=== PATIENT | female | born 1955 | race Two or more races ===

== ENCOUNTER 2016-06-18 12:36 | Inpatient (IN) | payer MEDICARE, MEDICAID ==
[~2016-06-18] VITALS: Ht 154.9 cm; Wt 72.6 kg
--- NOTE | 2016-06-18 12:36 | NUR ---
BIB FROM [facility], A/O X 4,AMBULATORY, NO MEDICAL COMPLAINTS AT THIS TIME, HERE FOR MEDICAL CLEARANCE PRIOR TO ADMISSION TO [facility].
--- NOTE | 2016-06-18 12:45 | NUR ---
SEEN BY DR LEACH, REFUSED LABORATORY TESTS REQUESTED, DR LEACH AWARE AND SAID THAT PATIENT CAN BE TX'D TO THE PSYCH UNIT FOR [facility]
--- NOTE | 2016-06-18 13:05 | NUR ---
REPORT GIVEN TO KIARA BROWN FOR [facility]
[2016-06-18] MEDS ORDERED: MAGNESIUM HYDROXIDE 30 ML UDC PO PRN (14:00)
[2016-06-18] MEDS ORDERED: LORAZEPAM 0.5 MG TABLET PO PRN (14:00)
[2016-06-18] MEDS ORDERED: MAG HYDROX/AL HYDROX/SIMETH 30 ML UDC PO PRN (14:00)
[2016-06-18 14:38] VITALS: BP 126/86
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
[2016-06-18 16:00] VITALS: BP 110/76
[2016-06-18] MEDS ORDERED: RISP1TAB7 PO (16:31)
[2016-06-18] MEDS ORDERED: DIPH50CA4 PO (16:31)
[2016-06-18 20:21] VITALS: BP 101/57
[2016-06-18] MEDS: risperiDONE-M 0.5 MG TAB.RAPDIS PO SCH (21:53)
--- NOTE | 2016-06-19 06:35 | NUR ---
GPS RN NOTES PT. SLEPT WELL DURING THE SHIFT , +2 NON PITTING EDEMA BOTH LOWER EXTREMITIES , NOTED DENIES ANY PAIN DISCOMFORT AT THIS TIME , ENDORSE TO NEXT SHIFT FOR CONTINUITY OF CARE .
[2016-06-19 07:37] LABS: ALBUMIN 3.5 g/dL (3.4-5.0); BILIRUBIN,TOTAL 0.4 mg/dL (0.2-1.0); CALCIUM, SERUM 8.6 mg/dL (8.5-10.1); CREATININE 0.7 mg/dL (0.6-1.3); POTASSIUM 4.2 mmol/L (3.5-5.1); TOTAL PROTEIN, SERUM 6.9 g/dL (6.4-8.2)
[2016-06-19 08:00] VITALS: BP 116/71
[2016-06-19] MEDS: ESCITALOPRAM OXALATE (10 MG) 10 MG TABLET PO SCH (08:38)
[2016-06-19] MEDS: risperiDONE-M 0.5 MG TAB.RAPDIS PO SCH ×2 (08:39→21:04)
--- NOTE | 2016-06-19 12:07 | NUR ---
Initial DC Plan: Patient reports that she is homeless and has [facility] [address] [place] [id number]; number unknown. She does not want to go back and wants to be sent to a homeless mcc in the [place], [place] area. Patient does not have any contact persons. SW will follow up with patient to discuss placement options. SW will work with patient and MD to form a safe and proper discharge. Patient will be mental health resources and medical resources prior to discharge.
[2016-06-19 16:00] VITALS: BP 111/69
[2016-06-19 20:00] VITALS: BP 123/73
[2016-06-19] MEDS: ZOLPIDEM TARTRATE 5 MG TABLET PO PRN (22:08)
[2016-06-20 08:00] VITALS: BP 141/91
[2016-06-20] MEDS: ESCITALOPRAM OXALATE (10 MG) 10 MG TABLET PO SCH (08:11)
[2016-06-20] MEDS: risperiDONE-M 0.5 MG TAB.RAPDIS PO SCH ×2 (08:11→20:59)
[2016-06-20] MEDS: ACETAMINOPHEN 325 MG TABLET PO PRN (08:11)
--- NOTE | 2016-06-20 09:58 | NUR ---
FAISAL sent a referral to [facility] [place], [place] [id number] in case patient agrees to be placed instead of going to a homeless correction. Will follow up Addendum: 06/25/16 at 1054 by JAIR MALONE Chilo Carmen at the facility, pt is not accepted due to not having enough skilled needs.
[2016-06-20 16:00] VITALS: BP 114/95
[2016-06-20 20:00] VITALS: BP 120/73
[2016-06-20] MEDS: ZOLPIDEM TARTRATE 5 MG TABLET PO PRN (20:59)
[2016-06-21 08:00] VITALS: BP 123/77
[2016-06-21] MEDS: risperiDONE-M 0.5 MG TAB.RAPDIS PO SCH ×2 (08:14→21:42)
[2016-06-21] MEDS: ACETAMINOPHEN 325 MG TABLET PO PRN (08:14)
[2016-06-21] MEDS: ESCITALOPRAM OXALATE (10 MG) 10 MG TABLET PO SCH (08:14)
[2016-06-21] MEDS ORDERED: CYCLOBENZAPRINE 10 MG TABLET PO PRN (09:30)
[2016-06-21 16:02] VITALS: BP 118/70
[2016-06-21 20:00] VITALS: BP 115/69
[2016-06-22 08:00] VITALS: BP 103/69
[2016-06-22] MEDS: risperiDONE-M 0.5 MG TAB.RAPDIS PO SCH ×2 (08:16→21:49)
[2016-06-22] MEDS: ESCITALOPRAM OXALATE (10 MG) 10 MG TABLET PO SCH (08:16)
[2016-06-22 16:00] VITALS: BP 112/69
[2016-06-22] MEDS: ACETAMINOPHEN 325 MG TABLET PO PRN (18:37)
[2016-06-22 20:04] VITALS: BP 118/59
[2016-06-23] MEDS: ZOLPIDEM TARTRATE 5 MG TABLET PO PRN ×2 (02:51→21:42)
--- NOTE | 2016-06-23 02:51 | NUR ---
GPS RN NOTE, PATIENT HAS A COMPLAINT OF NOT BEING ABLE TO SLEEP AND WOULD LIKE A SLEEPING AID AT THIS TIME. PATIENT VITAL SIGNS ARE STABLE. GAVE AMBIEN 5MG PO HS ORDERED. WILL REASSESS FOR INSOMNIA AND I WILL CONTINUE TO MONITOR THIS PATIENT.
[2016-06-23 08:00] VITALS: BP 121/77
[2016-06-23] MEDS: ESCITALOPRAM OXALATE (10 MG) 10 MG TABLET PO SCH (08:05)
[2016-06-23] MEDS: risperiDONE-M 0.5 MG TAB.RAPDIS PO SCH ×2 (08:06→21:41)
[2016-06-23 16:30] VITALS: BP 123/69
[2016-06-23 19:41] VITALS: BP_SYST 104; BP_SYST 118; BP_DIAS 59; BP_DIAS 68
[2016-06-24] MEDS: ESCITALOPRAM OXALATE (10 MG) 10 MG TABLET PO SCH (08:16)
[2016-06-24] MEDS: risperiDONE-M 0.5 MG TAB.RAPDIS PO SCH ×2 (08:16→20:21)
[2016-06-24 08:33] VITALS: BP 119/80
[2016-06-24 16:06] VITALS: BP 101/60
[2016-06-24 20:16] VITALS: BP 100/58
[2016-06-24] MEDS: ACETAMINOPHEN 325 MG TABLET PO PRN (20:22)
--- NOTE | 2016-06-25 07:40 | NUR ---
PT. QUIET,ISOLATIVE AND COMPLIANT.
[2016-06-25 08:18] VITALS: BP 124/66
[2016-06-25] MEDS: risperiDONE-M 0.5 MG TAB.RAPDIS PO SCH ×2 (09:55→21:31)
[2016-06-25] MEDS: ESCITALOPRAM OXALATE (10 MG) 10 MG TABLET PO SCH (09:55)
--- NOTE | 2016-06-25 10:54 | NUR ---
Pt. was referred and accepted to [facility] [address] [place] [address] , fax [phone] per Carmel at the facility. FAISAL will follow up with
[2016-06-25 16:07] VITALS: BP 130/60
--- NOTE | 2016-06-25 18:33 | NUR ---
DR. RIVERA,DR. PEREYRA IN TO SEE PT.
[2016-06-25 20:39] VITALS: BP 122/68
[2016-06-26 08:00] VITALS: BP 134/71
[2016-06-26] MEDS: ESCITALOPRAM OXALATE (10 MG) 10 MG TABLET PO SCH (08:11)
[2016-06-26] MEDS: risperiDONE-M 0.5 MG TAB.RAPDIS PO SCH ×2 (08:12→20:58)
[2016-06-26 16:00] VITALS: BP 108/66
--- NOTE | 2016-06-26 19:40 | NUR ---
RN INITIAL NOTES RECEIVED PT ON BED AWAKE WITHOUT ANY DISTRESS, A/O X 2-3 , NO AGGRESSIVE BEHAVIOR AT THIS TIME. ABLE TO VERBALIZE NEEDS . BREATHING EVEN AND UNLABORED ON ROOM AIR. FALL AND SAFETY MEASURES APPLIED. WILL CONTINUE TO MONITOR BEHAVIOR.
[2016-06-26 20:00] VITALS: BP 107/71
--- NOTE | 2016-06-27 07:17 | NUR ---
RN EOS NOTE; PT SLEPT WELL DURING THE NIGHT, NO ANY DISTRESS NOTED. ALL PRESCRIBED MEDS TOLERATED WELL, ENDORSED TO DAY SHIFT RN FOR CONTINUITY OF CARE.
[2016-06-27 08:00] VITALS: BP 99/68
[2016-06-27] MEDS: ESCITALOPRAM OXALATE (10 MG) 10 MG TABLET PO SCH (08:10)
[2016-06-27] MEDS: risperiDONE-M 0.5 MG TAB.RAPDIS PO SCH (08:10)
--- NOTE | 2016-06-27 14:17 | NUR ---
Discharge note: Pt will discharge to [facility] [address] [place] [address] , fax [phone]. Pt. is calm and cooperative and agrees with discharge plan. Pt. denies suicidal/homicidal ideations. Discharge instructions provided to the accepting facility and discharge paperwork has been signed.
--- NOTE | 2016-06-27 14:52 | NUR ---
Dr. Francis gave an order to D/C hold and D/C to [facility]. Pt. without distress, denies suicidal and homicidal and to follow up with psych and medical doctors. Yeison Lewis made aware of the discharge and said ok for discharge and reconciled meds. Pt. signed the discharge papers, pictures taken for the skin issues and belongings ready. Report given to Beatris over the facility.
[2016-06-27 16:00] VITALS: BP 125/74
--- NOTE | 2016-06-27 17:00 | NUR ---
Pt. left the unit via ambulance and transported via a gurney with belongings. Left without distress and on stable condition. V/S taken : BP 136/84, CT 78, RR 16, Temp 98.5 and Oxygen sat 97%.
== END 2016-06-27 17:00 | DRG 885 ==
LOC: EDBD 12:39 → ER 12:39 → GPS 13:14
PROVIDERS: ADMIT Psychiatry & Neurology Psychiatry; ATTEND Internal Medicine
DX: F33.3 Major depressive disorder, recurrent, severe with psychotic symptoms (principal); E78.5 Hyperlipidemia, unspecified; M54.9 Dorsalgia, unspecified; F29 Unspecified psychosis not due to a substance or known physiological condition; Z79.899 Other long term (current) drug therapy; F03.90 Unspecified dementia, unspecified severity, without behavioral disturbance, psychotic disturbance, mood disturbance, and anxiety
CPT/HCPCS: 36415; 80053-TC; 80061-TC; 87081-TC; A4606; Z7610